=== PATIENT | female | born 1950 | race Caucasian/White ===

== ENCOUNTER 2025-01-23 13:22 | Emergency (ER) | payer MEDICARE, SELFPAY ==
--- OUTSIDE RECORDS SUMMARY | 2025-01-23 13:33 | XMS_ITS | Continuity of Care Document ---
Author Organization [facility] Address [address] [place] [id number] Problems Unknown Problems Results Test Value / Unit Interpretation Reference Ran SARS-CoV-2 (COVID-19), RT-PC R/TMA[[id number]] Collected: 07/01/2021 02:10 PM Specimen Received: 07/03/2021 06:52 PM Source: [facility] SARS-CoV-2 INTERPRETATION [[id number]] Negative See Note SARS-CoV-2 RNA NOT DETECTEDN egative results do not preclude SARS-CoV-2 infection and should notbe used as the sole basis for patient management decisions. Negativeresults must be combined with clinical observations, patient history,and epidemiological information. Optimum specimen types and timingfor peak viral levels during infections caused by SARS-CoV-2 have notbeen determined. Collection of multiple specimens or types ofspecimens may be necessary to detect virus. Improper specimencollection and handling, sequence variability under primers/probes,or organism present below the limit of detection may lead to falsenegative results. Positive and negative predictive values oftesting are highly dependent on prevalence. False negative testresults are more likely when prevalence is high. SOURCE [[id number]] NASOPHARYNGEAL Note: Methodology is Emily BABADUas Real-Time RT-PCR. The expected result or reference range is NEGATIVE (Not Detected). For more information regarding COVID-19 testing to include clinicalinformation, methodology detail, intended use, FDA authorization andrecommended fact sheets for patients or healthcare providers, see [employer] Announcement: SARS-CoV-2 (COVID-19) by NAAT at URL below (note,fact sheets are provided by method given in report:[email or web address]/ Alternatively, see downloadable PDF fact sheet at:[email or web address] Allergies, adverse reactions, alerts No known allergies and adverse reactions Medications No administered medications reported Vital Signs No vital signs reported Social History No smoking Hx information available
--- OUTSIDE RECORDS SUMMARY | 2025-01-23 13:33 | XMS_ITS | Encounter Summary ---
[id number] [address] [place] [address] Care Team Providers Care Wholesale Manager Name Role Phone Sandra Rosario MD Primary Care Provider [phone] Reason for Visit * Reason Onset Date Comments Med Refill 01/11/2025 Encounter Details Date Type Department Care Team (Late st Contact Info) Description 01/11/2025 Refill [facility] [address] [facility] [address] [place] [address] Kayli Hubbard, RN Med Refill Social History Tobacco Use Types Packs/Day Years Used Date Smoking Tobacco: Former Cigarettes 1 1 S tarted: 01/18/2024 Smokeless Tobacco: Never Alcohol Use Standard Drinks/Week Comments Yes 0 (1 standard drink = 0.6 oz pur e alcohol) occasional AUDIT-C Answer Date Recorded Q1: How often do you have a drink containing alc ohol? Monthly or less 12/24/2021 Q2: How many drinks containi ng alcohol do you have on a typical day when you are drinking? 1 or 2 12/24/2021 Q3: How often do you have si x or more drinks on one occasion? Never 12/24/2021 Childcare Answer Date Recorded Childcare Unknown 09/20/2020 Employment Answer Date Recorded Employment Unknown 09/20/2020 Hunger Screening Answer Date Recorded Within the past 12 months we worried whether our food would run out before we got money to buy more. Never True 09/05/2024 Within the past 12 months th e food we bought just didn't last and we didn't have money to get more. Never True 09/05/2024 Purpose - Life Answer Date Recorded Purpose and direction in life Unknown Comments No Sex and Gender Information Value Date Recorded Sex Assigned at Female 07/01/2021 5:54 PM EST Legal Sex Female 11:47 AM EDT Gender Identity Female 07/01/2021 5:54 PM EST Sexual Orientation Straight 07/01/2021 5: 53 PM EST documented as of this encounter Plan of Treatment Upcoming Encounters Date Type Department Care Team (Late st Contact Info) Description 03/09/2025 11:45 AM EDT Office Visit [facility] [address] [place] [phone] Manpreet Heller MD [address] [place] [id number] Myranda Haq MD [address] [place] [address] documented as of this encounter Goals Goal Patient Goal Type Associated Problems Recent Progress Patient-Stated? Author Home General Yes Mary Beth Dawson LSW Note: Evaluation of progress towards goal: Safe dc transition home with family support. documented as of this encounter Visit Diagnoses Diagnosis Coronary artery disease involving [place] coronary artery of [place] heart without angina pectoris documented in this encounter Care Teams Wholesale Manager Relationship Specialty Start Date End Date Sandra Rosario MD PCP - General Family Medicine 04/11/21 documented as of this encounter
--- OUTSIDE RECORDS SUMMARY | 2025-01-23 13:33 | XMS_ITS | Clinical Summary ---
Author Organization [facility] Address [address] [place] [address] Care Team Providers Care Bacon De Rinder Name Role Phone Johanna Terrell PATIENT ACCOUNT SPECIALIST Unavailable [phone] Chanel Moffett MD Primary Care Provider [phone] Zev Moreno LPN Unavailable [phone] Allergies Active Allergy Reactions Criticality Noted Date Comments Hydrocodone-Acetaminophen 01/21/2023 Other Reaction(s): Unknown Medications Lancets misc Inject 1 Lancet under the skin 1 (one) time each day at the same time. Active aspirin 81 MG EC tablet Take 81 mg by mouth in the morning. Active MAGnesium-Oxide 400 (240 Mg) MG tablet Take 400 mg by mouth in the morning. 4 Active nitroglycerin (Nitrostat) 0.4 MG SL tablet 1 under the tongue as needed for angina, may repeat q5mins for up three doses 4 Active potassium chloride CR (Klor-Con M20) 20 MEQ ER tablet Take 20 mEq by mouth in the morning. Active ticagrelor (Brilinta) 90 MG tablet Take 90 mg by mouth in the morning and 90 mg in the evening. 4 Active Accu-Chek Krupa Plus test stripIndications:Ty pe 2 diabetes mellitus with other circulatory complication, without long-term current use of insulin (HCC) USE AND DISCARD 1 TEST STRIP DAILY DIRECTED 100 strip 3 4 Active alendronate (Fosamax) 35 MG tabletIndications:O steopenia, unspecified location TAKE 1 TABLET BY MOUTH EVERY 7 DAYS IN THE MORNING WITH A FULL GLASS OF WATER, ON AN EMPTY STOMACH, AND DO NOT TAKE ANYTHING ELSE BY MOUTH OR LIE DOWN FOR THE NEXT 30 MINUTES 4 tablet 11 5 Active atorvastatin (Lipitor) 80 MG tabletIndications:M ixed hyperlipidemia TAKE ONE TABLET BY MOUTH EVERY MORNING 90 tablet 2 5 Active lisinopril-hydroCHL OROthiazide 20-12.5 MG tabletIndications:B enign essential HTN TAKE ONE TABLET BY MOUTH EVERY MORNING 90 tablet 5 Active omeprazole (PriLOSEC) [address] capsuleIndications: GERD without esophagitis TAKE ONE CAPSULE BY MOUTH EVERY DAY AT THE SAME TIME EACH DAY 90 capsule 5 Active metoprolol succinate XL (Toprol-XL) 50 MG 24 hr tabletIndications:B enign essential HTN TAKE ONE TABLET BY MOUTH EVERY MORNING 90 tablet 5 Active metFORMIN (Glucophage) 1000 MG tabletIndications:T ype 2 diabetes mellitus without complication, without long-term current use of insulin (HCC) TAKE ONE TABLET BY MOUTH EVERY MORNING AND IN THE EVENING WITH MEALS 180 tablet 5 Active SITagliptin (Januvia) 50 MG tabletIndications:T ype 2 diabetes mellitus without complication, without long-term current use of insulin (HCC) Take 1 tablet (50 mg) by mouth Daily 30 tablet 11 5 12/08/19 26 Active Active Problems Problem Noted Date Diagnosed Date Benign essential HTN 01/21/2023 Chronic obstructive pulmonary disease 01/21/2023 Cigarette smoker 01/21/2023 Diabetes mellitus 01/21/2023 GERD without esophagitis 01/21/2023 Hyperlipidemia 01/21/2023 Lacunar stroke 01/21/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, 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 12/24/2021 Type 2 diabetes mellitus wit h circulatory disorder, without long-term current use of insulin 12/24/2021 History of colonic polyps 04/01/2021 Resolved Problems Problem Noted Date Diagnosed Date Resolved Date Diverticulosis 01/21/2023 11/28/2024 Gastroesophageal reflux disease 10/15/2016 11/28/2024 Diverticular disease of colon 12/26/2015 11/28/2024 Essential hypertension 10/16/201511/21 Encounters Date Type Department Care Team Description 12/14/2024 10:30 AM EDT Ancillary Procedure [facility] [place] [facility] [address] [facility] [address] [place] [address] Encounter for screening mammogram for breast cancer 12/14/2024 Travel 12/01/2024 Results Follow-Up [facility] [address] [facility] [place] [phone] Johanna Terrell NP Hypokalemia (Primary Dx); Type 2 diabetes mellitus without complication, without long-term current use of insulin ([facility]) 11/29/2024 Refill [facility] [address] [facility] [place] [phone] Johanna Terrell NP Type 2 diabetes mellitus without complication, without long-term current use of insulin ([facility]) 11/28/2024 11:00 AM EDT Office Visit [facility] [address] [facility] [place] [phone] Johanna Terrell NP Encounter for wellness examination (Primary Dx); Encounter for screening mammogram for breast cancer; Benign essential HTN ; Chronic obstructive pulmonary disease, unspecified COPD type ([facility]); Type 2 diabetes mellitus without complication, without long-term current use of insulin ([facility]); Cigarette smoker; Mixed hyperlipidemia ; Lacunar stroke ([facility]); Cerebrovascular accident (CVA) due to occlusion of left pontine artery ([facility]); Type 2 diabetes mellitus with other circulatory complication, without long-term current use of insulin ([facility]); Screening for deficiency anemia; Sequelae, post-stroke; History of colonic polyps; GERD without esophagitis; Interstitial pulmonary disease, unspecified ([facility]) 11/28/2024 Bamboo flowsheet [facility] [address] [facility] [place] [phone] Johanna Terrell NP 11/28/2024 Travel 11/15/2024 Results Follow-Up [facility] [address] [facility] [place] [address] Johanna Terrell NP Type 2 diabetes mellitus with other circulatory complication, without long-term current use of insulin (HCC) (Primary Dx); Benign essential HTN ; Urine test positive for microalbuminuria 11/09/2024 Telephone [facility] [address] [place] [address] [place] GretchenPAT[facility] Open Orders 11/08/2024 Refill [facility] [address] [place] [address] Johanna Terrell NP Benign essential HTN ; GERD without esophagitis; Type 2 diabetes mellitus without complication, without long-term current use of insulin (HCC) 11/07/2024 Refill [facility] [address] [place] [address] Johanna Terrell NP Mixed hyperlipidemia 10/26/2024 Refill [facility] [address] [place] [phone] Johanna Terrell NP Type 2 diabetes mellitus without complication, without long-term current use of insulin ([facility]) from Last 3 Months Immunizations Immunization Administration Dates Next Due Influenza, High Dose Seasona l, Preservative Free 04/27/2024,05/18/2023,05/03/2018,06/11 Influenza, High-dose Seasona l, Quadrivalent, Preservative Free 05/08/2022 Influenza, injectable, quadr ivalent, preservative free 04/29/2021,05/19/2019,05/18/2017 Influenza, seasonal, injecta ble, preservative free 06/15/2012 Moderna SARS-CoV-2 50mcg/0.5mL Booster Pneumococcal Conjugate PCV 13 04/30/2016 Pneumococcal Polysaccharide PPSV23 05/14/2022, RSV, recombinant, protein talbert bunit RSVpreF, adjuvant reconstitu, 120mcg/0.5mL, PF (Arexvy) 04/27/2024 Tdap 07/16/2022 Zoster, Recombinant 07/16/2022,05/14/2022 Family History Medical History Relation Name Comments Colon cancer Father Esophageal cancer Father Colon cancer Mother Diabetes Mother Relation Name Status Comments Brother 5 Father Mother Sister 3 Social History Tobacco Use Types Packs/Day Years Used Date Smoking Tobacco: Former Cigarettes 1 61.5 S tarted: 1966 Smokeless Tobacco: Never Tobacco Cessation:Counseling Given: Not Answered Comments:5 or less cigarettes/day Alcohol Use Standard Drinks/Week Comments Yes 12 (1 standard drink = 0.6 oz pure alcohol) Alcohol: 1 or 2 drinks, 2 to 4 times a month; Caffeine: 1-2 cups/day coffee [id number] Health Literacy Answer Date Recor ded How often do you need to hav e someone help you when you read instructions, pamphlets, or other written material from your doctor or pharmacy? Never 11/28/2024 Humiliation, Afraid, Rape, and Kick questionnair e Answer Date Recorded Within the last year, have y ou been afraid of your partner or ex-partner? No 11/28/2024 Within the last year, have y ou been humiliated or emotionally abused in other ways by your partner or ex-partner? No Within the last year, have y ou been kicked, hit, slapped, or otherwise physically hurt by your partner or ex-partner? No 11/28/2024 Within the last year, have y ou been raped or forced to have any kind of sexual activity by your partner or ex-partner? No 11/28/2024 Social Connection and Isolation Panel [NHANES] A nswer Date Recorded In a typical week, how many times do you talk on the phone with family, friends, or neighbors? Three times a week 11/29/19 How often do you get togethe r with friends or relatives? Twice a week 11/28/2024 How often do you attend chur ch or religion services? 1 to 4 times per year 11/28/2024 Do you belong to any clubs o r organizations such as rastafari groups, unions, fraternal or athletic groups, or school groups? No 11/28/2024 How often do you attend meet ings of the clubs or organizations you belong to? Never 11/28/2024 Are you , , di vorced, , never , or living with a partner? 11/28/2024 AUDIT-C Answer Date Recorded Q1: How often do you have a drink containing alc ohol? 2-4 times a month 11/28/2024 Q2: How many drinks containi ng alcohol do you have on a typical day when you are drinking? 3 or 4 11/28/2024 Q3: How often do you have si x or more drinks on one occasion? Less than monthly 11/28/2024 Overall Financial Resource Strain (CARDIA) Answe r Date Recorded How hard is it for you to pa y for the very basics like food, housing, medical care, and heating? Not hard at all 11/28/2024 PHQ-2 Answer Date Recorded Patient Health Questionnaire-2 Score 0 11/28/2024 [facility] Occupat ional Health - Occupational Stress Questionnaire Answer Date Recorded Do you feel stress - tense, restless, nervous, or anxious, or unable to sleep at night because your mind is troubled all the time - these days? Not at all 11/28/2024 Exercise Vital Sign Answer Date Recorde d On average, how many days pe r week do you engage in moderate to strenuous exercise (like a brisk walk)? 1 day 11/28/2024 On average, how many minutes do you engage in exercise at this level? 20 min 11/28/2024 Hunger Vital Sign Answer Date Recorded Within the past 12 months, y ou worried that your food would run out before you got the money to buy more. Never true 11/29/19 25 Within the past 12 months, t he food you bought just didn't last and you didn't have money to get more. Never true 11/28/2024 PRAPARE - Transportation Answer Date Re corded In the past 12 months, has l ack of transportation kept you from medical appointments or from getting medications? No 11/02 In the past 12 months, has l ack of transportation kept you from meetings, work, or from getting things needed for daily living? No 11/28/2024 Housing Stability Vital Sign Answer Robson e Recorded In the last 12 months, was t here a time when you were not able to pay the mortgage or rent on time? No 05/17/2023 In the last 12 months, how many places have you lived? 1 05/17/2023 In the last 12 months, was t here a time when you did not have a steady place to sleep or slept in a assisted (including now)? No 05/17/2023 Housing Stability Vital Sign Answer Robson e Recorded In the last 12 months, was t here a time when you were not able to pay the mortgage or rent on time? No 11/28/2024 In the past 12 months, how m any times have you moved where you were living? 0 11/28/2024 At any time in the past 12 m [facility], were you homeless or living in a assisted (including now)? No 11/28/2024 Comments Unknown Sex and Gender Information Value Date Recorded Sex Assigned at Not on file Legal Sex Female 7:26 PM EDT Gender Identity Female 10/15/2022 7:26 PM EDT Sexual Orientation Straight 02/10/2023 7: 44 AM EDT Last Filed Vital Signs Vital Sign Reading Time Taken Comments Blood Pressure 110/68 11/28/2024 10:32 AM EDT Pulse 69 11/28/2024 10:32 AM EDT Temperature 36.2 C (97.2 F) 02/29/2024 9:42 AM EDT Respiratory Rate 16 11/16/2023 10:44 AM EDT Oxygen Saturation 94% 11/28/2024 10:32 AM EDT Inhaled Oxygen Concentration - - Weight 78.5 kg (173 lb) 11/28/2024 10:32 AM EDT Height 170.2 cm (5' 7 ) 11/28/2024 10:32 AM EDT Body Mass Index 27.1 11/28/2024 10:32 AM EDT Plan of Treatment Upcoming Encounters Date Type Department Care Team (Late st Contact Info) Description 03/08/2025 10:30 AM EDT Office Visit [facility] [address] [place] [address] Johanna Terrell NP [address] [place] [address] 05/31/2025 10:00 AM EDT Office Visit [facility] [address] [place] [address] Johanna Terrell NP [address] [place] [address] Health Maintenance Due Date Last Done Comments Diabetes: Hemoglobin A1C 02/27/2025 025, 05/16/2024, 11/16/2023, Additional history exists Diabetes: Urine Protein Screening 11/11/2025 11/11/2024, 08/08/2020, 11/29/2018 Diabetes: Retinopathy Screening 11/18/2025 11/19/2023, 11/11/2021, 05/20/2021, Additional history exists Medicare Annual Wellness (AWV) 11/28/2025 0 11/28/2024, 11/28/2024, 11/16/2023, Additional history exists Colonoscopy Discontinued 04/11/2021, 04/2021, 04/11/2021, Additional history exists Colorectal Cancer Screening Discontinued Pneumococcal Vaccine: 65+ Years Completed 05/14/2022, 04/30/2016, 04/10/2014 Influenza Vaccine Completed 04/27/2024, , 05/08/2022, Additional history exists Mammogram Discontinued 12/14/2024, 08/2023, 09/03/2022, Additional history exists CT Colonography Discontinued FIT-DNA Discontinued FIT Discontinued FOBT Discontinued Sigmoidoscopy Discontinued Procedures Procedure Name Priority Date/Time Associated Diagnosis Comments BI MAMMOGRAM SCREENING TOMOSYNTHESIS BILATERAL Routine 12/14/2024 10:31 AM EDT Encounter for screening mammogram for breast cancer POTASSIUM Routine 12/07/2024 1:28 PM EDT Hypokalemia HEMOGLOBIN A1C Routine 11/28/2024 11:10 AM EDT Type 2 diabetes mellitus with other circulatory complication, without long-term current use of insulin (HCC) Encounter for wellness examination TSH W/REFLEX TO FT4 Routine 11/28/2024 1 1:10 AM EDT Encounter for wellness examination LIPID PANEL Routine 11/28/2024 11:10 AM EDT Mixed hyperlipidemia Encounter for wellness examination CBC (INCLUDES DIFF/PLT) Routine 11/28/2024 11:10 AM EDT Encounter for screening mammogram for breast cancer Screening for deficiency anemia COMPREHENSIVE METABOLIC PANEL Routine 11/28/2024 11:10 AM EDT Encounter for screening mammogram for breast cancer Type 2 diabetes mellitus with other circulatory complication, without long-term current use of insulin (HCC) MICROALBUMIN / CREATININE URINE RATIO Routine 11/11/2024 10:33 AM EDT Type 2 diabetes mellitus without complication, without long-term current use of insulin (HCC) DIABETIC RETINOPATHY SCREENING - OU - BOTH EYES Routine 11/19/2023 9:14 AM EDT COLONOSCOPY Routine 04/11/2021 12:00 PM EDT from Last 3 Months or Most Recently Relevant to Health Maintenance Results * Bilateral screening mammogram with tomosynthesis (12/14/2024 10:31 AM EDT) Anatomical Region Laterality Modality Breast Bilateral Mammography 12/14/2024 4:42 PM EDT Impressions 12/14/2024 4:47 PM EDT Impression: No specific evidence of malignancy seen in either breast. BIRADS 2 - Benign Findings DENSITY: There are scattered areas of fibroglandular density. FOLLOW-UP: Routine Screening Mammogram ELECTRONICALLY SIGNED BY: Hebert Jones M.D. Narrative 12/14/2024 4:47 PM EDT Examination: BI MAMMOGRAM SCREENING TOMOSYNTHESIS BILATERAL Clinical History: screening for breast cancer Technique: Screening digital mammography study of both breasts was performed with 2-D and 3-D tomosynthesis imaging. Study was compared to the prior exam dated 12/02/2023. Findings: There is no evidence of interval dominant spiculated mass, grouped microcalcifications, or skin thickening which would be suggestive of malignancy. Scattered benign calcifications are noted bilaterally. A small benign-appearing asymmetric density is seen in the superolateral aspect of the right breast similar to the prior study. Procedure Note Hebert Jones MD - 12/14/2024 Examination: BI MAMMOGRAM SCREENING TOMOSYNTHESIS BILATERAL Clinical History: screening for breast cancer Technique: Screening digital mammography study of both breasts wasperformed with 2-D and 3-D tomosynthesis imaging. Study was compared tothe prior exam dated 12/02/2023. Findings: There is no evidence of interval dominant spiculated mass,grouped microcalcifications, or skin thickening which would be suggestiveof malignancy. Scattered benign calcifications are noted bilaterally. A smallbenign-appearing asymmetric density is seen in the superolateral aspect ofthe right breast similar to the prior study. IMPRESSION: Impression: No specific evidence of malignancy seen in either breast. BIRADS 2 - Benign Findings DENSITY: There are scattered areas of fibroglandular density. FOLLOW-UP: Routine Screening Mammogram ELECTRONICALLY SIGNED BY: Hebert Jones M.D. Johanna Terrell NP IMG BI PROCEDURES Final Result * Potassium (12/07/2024 1:28 PM EDT) Potassium, Bld 4.2 3.5 - 5.3 mmol/L [facility] Blood Venous blood specimen / Unknown 12/07/2024 1:28 PM EDT 12/07/2024 1:28 PM EDT Narrative Resulting Agency Comment Performing Organization Information Site ID: QPT Name: [facility] Address: [address] [place] [address], [address] [place] [phone] Director: Edgar Andino MD Johanna Terrell NP LAB BLOOD ORDERABLES Fi nal Result [facility] * TSH W/REFLEX TO FT4 (11/28/2024 11:10 AM EDT) TSH W/REFLEX TO FT4 1.21 0.40 - 4.50 mIU/L [facility] 11/28/2024 11:1 0 AM EDT 11/28/2024 11:10 AM EDT Narrative Resulting Agency Comment Performing Organization Information Site ID: QPT Name: [facility] Address: [address], [address] [place] [address] Director: Edgar Andino MD Johanna Terrell PATIENT ACCOUNT SPECIALIST LAB BLOOD ORDERABLES Fi nal Result [facility] * CBC and differential (11/28/2024 11:10 AM EDT) Pathologist [facility] WHITE BLOOD CELL COUNT 6.7 3.8 - 10.8 Thousand/u L [facility] RED BLOOD CELL COUNT 4.48 3.80 - 5.10 Million/uL [facility] HEMOGLOBIN 13.1 11.7 - 15.5 g/dL [facility] HEMATOCRIT 41.0 35.0 - 45.0 % [facility] MCV 91.5 80.0 - 100.0 fL [facility] MCH 29.2 27.0 - 33.0 pg [facility] MCHC 32.0 32.0 - 36.0 g/dL [facility] Comment: For adults, a slight decrease in the calculated MCHC value (in the range of 30 to 32 g/dL) is most likely not clinically significant; however, it should be interpreted with caution in correlation with other red cell parameters and the patient's clinical condition. RDW 13.8 11.0 - 15.0 % [facility] PLATELET COUNT 235 140 - 400 Thousand/u L [facility] MPV 11.3 7.5 - 12.5 fL [facility] ABSOLUTE NEUTROPHILS 4,402 1,500 - 7,800 cells/uL [facility] ABSOLUTE LYMPHOCYTES 1,802 850 - 3,900 cells/uL [facility] ABSOLUTE MONOCYTES 382 200 - 950 cells/uL [facility] ABSOLUTE EOSINOPHILS 87 15 - 500 cells/uL [facility] ABSOLUTE BASOPHILS 27 0 - 200 cells/uL [facility] NEUTROPHILS 65.7 % [facility] LYMPHOCYTES 26.9 % [facility] MONOCYTES 5.7 % [facility] EOSINOPHILS 1.3 % [facility] BASOPHILS 0.4 % [facility] Blood Venous blood specimen / Unknown 11/28/2024 11:10 AM EDT 11/28/2024 11:10 AM EDT Narrative Resulting Agency Comment Performing Organization Information Site ID: QPT Name: [facility] Address: [address], [address] [place] [address] Director: Edgar Andino MD Johanna Terrell PATIENT ACCOUNT SPECIALIST LAB BLOOD ORDERABLES Fi nal Result Performing Organization Address [facility]/ZIP Co de Phone Number [facility] * (ABNORMAL) Hemoglobin A1c (11/28/2024 11:10 AM EDT) Hemoglobin A1C 8.2(H) <5.7 % [facility] Comment: For someone without known diabetes, a hemoglobin A1c value of 6.5% or greater indicates that they may have diabetes and this should be confirmed with a follow-up test. For someone with known diabetes, a value <7% indicates that their diabetes is well controlled and a value greater than or equal to 7% indicates suboptimal control. A1c targets should be individualized based on duration of diabetes, age, comorbid conditions, and other considerations. Currently, no consensus exists regarding use of hemoglobin A1c for diagnosis of diabetes for children. Blood Venous blood specimen / Unknown 11/28/2024 11:10 AM EDT 11/28/2024 11:10 AM EDT Narrative Resulting Agency Comment Performing Organization Information Site ID: QPT Name: [facility] Address: [address] [place] [address], [address] [place] [phone] Director: Edgar Andino MD Johanna Terrell PATIENT ACCOUNT SPECIALIST LAB BLOOD ORDERABLES nal Result Performing Organization Address [facility] de Phone Number [facility] * (ABNORMAL) Lipid panel (11/28/2024 11:10 AM EDT) CHOLESTEROL, TOTAL 141 <200 mg/dL [facility] HDL CHOLESTEROL 28(L) > OR = 50 mg/dL [facility] TRIGLYCERIDES 195(H) <150 mg/dL [facility] LDL-CHOLESTEROL 84 mg/dL (calc) [facility] Comment: Reference range: <100 Desirable range <100 mg/dL for primary prevention; <70 mg/dL for patients with CHD or diabetic patients with > or = 2 CHD risk factors. LDL-C is now calculated using the Susannah calculation, which is a validated novel method providing better accuracy than the Friedewald equation in the estimation of LDL-C. Andrea DRAKE et al. VLADIMIR. 2013;310(19): 8574-5965 (http://education.[employer]/faq/QMD688) CHOL/HDLC RATIO 5.0(H) <5.0 (calc) [facility] NON HDL CHOLESTEROL 113 <130 mg/dL (calc) [facility] Comment: For patients with diabetes plus 1 major ASCVD risk factor, treating to a non-HDL-C goal of <100 mg/dL (LDL-C of <70 mg/dL) is considered a therapeutic option. Blood Venous blood specimen / Unknown 11/28/2024 11:10 AM EDT 11/28/2024 11:10 AM EDT Narrative Resulting Agency Comment Performing Organization Information Site ID: QPT Name: [facility] Address: [address] [place] [address], [address] [place] [phone] Director: Edgar Andino MD Johanna Terrell PATIENT ACCOUNT SPECIALIST LAB BLOOD ORDERABLES Fi nal Result [facility] * (ABNORMAL) Comprehensive metabolic panel (11/28/2024 11:10 AM EDT) Glucose 115(H) 65 - 99 mg/dL [facility] Comment: Fasting reference interval For someone without known diabetes, a glucose value between 100 and 125 mg/dL is consistent with prediabetes and should be confirmed with a follow-up test. BUN 9 7 - 25 mg/dL [facility] Creatinine 0.55(L) 0.60 - 1.00 mg/dL [facility] EGFR 95 > OR = 60 mL/min/1.7 3m2 [facility] BUN/CREATININE RATIO 16 6 - 22 (calc) [facility] Sodium 141 135 - 146 mmol/L [facility] Potassium, Bld 3.3(L) 3.5 - 5.3 mmol/L [facility] Chloride 100 98 - 110 mmol/L [facility] Carbon Dioxide 30 20 - 32 mmol/L [facility] Calcium 9.8 8.6 - 10.4 mg/dL [facility] PROTEIN, TOTAL 7.8 6.1 - 8.1 g/dL [facility] ALBUMIN 4.4 3.6 - 5.1 g/dL [facility] GLOBULIN 3.4 1.9 - 3.7 g/dL (calc) [facility] ALBUMIN/GLOBULIN RATIO 1.3 1.0 - 2.5 (calc) [facility] BILIRUBIN, TOTAL 0.5 0.2 - 1.2 mg/dL [facility] ALKALINE PHOSPHATASE 57 37 - 153 U/L [facility] AST 51(H) 10 - 35 U/L [facility] ALT 44(H) 6 - 29 U/L [facility] Blood Venous blood specimen / Unknown 11/28/2024 11:10 AM EDT 11/28/2024 11:10 AM EDT Narrative Resulting Agency Comment Performing Organization Information Site ID: QPT Name: [facility] Address: [address] [place] [phone] Director: Edgar Andino MD us Johanna Terrell PATIENT ACCOUNT SPECIALIST LAB BLOOD ORDERABLES Fi nal Result Performing Organization Address City/[facility]/ZIP Co de Phone Number [facility] * (ABNORMAL) Microalbumin / creatinine, urine ratio (11/11/2024 10:33 AM EDT) CREATININE, RANDOM URINE 67 20 - 275 mg/dL [facility] ALBUMIN, URINE 3.9 See Note: mg/dL [facility] Comment: Reference Range: Reference Range Not established ALBUMIN/CREATININE RATIO, RANDOM URINE 58(H) <30 mg/g creat [facility] Comment: The ADA defines abnormalities in albumin excretion as follows: Albuminuria Category Result (mg/g creatinine) Normal to Mildly increased <30 Moderately increased 30-299 Severely increased > OR = 300 The ADA recommends that at least two of three specimens collected within a 3-6 month period be abnormal before considering a patient to be within a diagnostic category. Urine Urine specimen obtained by clean catch procedure / Unknown 11/11/2024 10:33 AM EDT 11/11/2024 10:34 AM EDT Narrative [facility] - 11/12/2024 9:57 AM EDT SPLIT 11/16/2023 FROM [id number] Resulting Agency Comment Performing Organization Information Site ID: QPT Name: [facility] Address: [facility], [address] [place] [id number] Director: Edgar Andino MD us Johanna Terrell PATIENT ACCOUNT SPECIALIST LAB URINE ORDERABLES Fi nal Result [facility] * Diabetic Retinopathy Screening - OU - Both Eyes (11/19/2023 9:14 AM EDT) Anatomical Region Laterality Modality Head Other us Arleen Campuzano NP OPHTH PHOTOGRAPHY Final Result * Colonoscopy (04/11/2021 12:00 PM EDT) Anatomical Region Laterality Modality Endoscopy 04/11/2021 12:0 0 PM EDT Narrative 04/11/2021 12:00 PM EDT PERFORMED AT [facility] LOCATION:[id number] Procedure Note CONVERSION, GENERIC - 12/17/2022 PERFORMED AT [facility] LOCATION:[id number] us Chanel Moffett MD ENDOSCOPY PROCEDURE ORDERABLE S Final Result from Last 3 Months or Most Recently Relevant to Health Maintenance Insurance [employer] MEDICARE [employer]VANTAGE Care Teams Bacon De Rinder Relationship Specialty Start Date End Date Johanna Terrell NP [address] [place], [place] [id number] PCP - Agnieszka GARNER 08/03/21 Chanel Moffett MD [address], [place] [id number] PCP - General Family Medicine 01/27/23 Zev Moreno LPN [address] [place] [id number] Licensed Practical Nurse Family Medicine 10/12/24
--- OUTSIDE RECORDS SUMMARY | 2025-01-23 13:33 | XMS_ITS | Encounter Summary ---
Author Organization [facility] Address [address] [place] [address] Care Team Providers Care Superintendent Sanitation Name Role Phone Johanna Terrell POSTDOCTORAL SCHOLAR Unavailable [phone] Chanel Moffett MD Primary Care Provider [phone] Zev Moreno LPN Unavailable [phone] Reason for Visit * Reason Onset Date Comments Med Refill 01/21/2024 Encounter Details Date Type Department Care Team (Late st Contact Info) Description 01/21/2024 Refill [facility] [address] [place] [address] Chanel Moffett MD [address] [place] [address] Social History Tobacco Use Types Packs/Day Years Used Date Smoking Tobacco: Every Day Cigarettes 1 61.5 Started: 1965 Smokeless Tobacco: Never Comments:5 or less cigarette s/day Alcohol Use Standard Drinks/Week Comments Yes 0 (1 standard drink = 0.6 oz pure alcohol) Alcohol: 1 or 2 drinks, 2 to 4 times a month; Caffeine: 1-2 cups/day coffee Humiliation, Afraid, Rape, and Kick questionnair e Answer Date Recorded Within the last year, have y ou been afraid of your partner or ex-partner? No 05/17/2023 Within the last year, have y ou been humiliated or emotionally abused in other ways by your partner or ex-partner? No Within the last year, have y ou been kicked, hit, slapped, or otherwise physically hurt by your partner or ex-partner? No 05/17/2023 Within the last year, have y ou been raped or forced to have any kind of sexual activity by your partner or ex-partner? No 05/17/2023 Social Connection and Isolat ion Panel [NHANES] Answer Date Recorded In a typical week, how many times do you talk on the phone with family, friends, or neighbors? More than three times a week 05/17/2023 How often do you get togethe r with friends or relatives? Twice a week 05/17/2023 How often do you attend chur or buddhist services? More than 4 times per year 05/17/2023 Do you belong to any clubs o r organizations such as baptism groups, unions, fraternal or athletic groups, or school groups? No 05/17/2023 How often do you attend meet ings of the clubs or organizations you belong to? Never 05/17/2023 Are you , , di vorced, , never , or living with a partner? 05/17/2023 AUDIT-C Answer Date Recorded Q1: How often do you have a drink containing alc ohol? 2-3 times a week 05/17/2023 Q2: How many drinks containi ng alcohol do you have on a typical day when you are drinking? 3 or 4 05/17/2023 Q3: How often do you have si x or more drinks on one occasion? Less than monthly 05/17/2023 Overall Financial Resource Strain (CARDIA) Answe r Date Recorded How hard is it for you to pa y for the very basics like food, housing, medical care, and heating? Not hard at all 05/17/2023 [facility] [place] of Occupat ional Health - Occupational Stress Questionnaire Answer Date Recorded Do you feel stress - tense, restless, nervous, or anxious, or unable to sleep at night because your mind is troubled all the time - these days? Not at all 05/17/2023 Exercise Vital Sign Answer Date Recorde d On average, how many days pe r week do you engage in moderate to strenuous exercise (like a brisk walk)? 0 days 05/17/2023 On average, how many minutes do you engage in exercise at this level? 0 min 05/17/2023 Hunger Vital Sign Answer Date Recorded Within the past 12 months, y ou worried that your food would run out before you got the money to buy more. Never true 05/17/20 23 Within the past 12 months, t he food you bought just didn't last and you didn't have money to get more. Never true 05/17/2023 PRAPARE - Transportation Answer Date Re corded In the past 12 months, has l ack of transportation kept you from medical appointments or from getting medications? No 05/03 In the past 12 months, has l ack of transportation kept you from meetings, work, or from getting things needed for daily living? No 05/17/2023 Housing Stability Vital Sign Answer [...] place to sleep or slept in a [place] health care facility (including now)? No 05/17/2023 Comments Unknown Sex and Gender Information Value Date Recorded Sex Assigned at Not on file Legal Sex Female 7:26 PM EDT Gender Identity Female 10/15/2022 7:26 PM EDT Sexual Orientation Straight 02/10/2023 7: 44 AM EDT documented as of this encounter Plan of Treatment Upcoming Encounters Date Type Department Care Team (Late st Contact Info) Description 03/08/2025 10:30 AM EDT Office Visit [facility] [address] [place] [phone] Johanna Terrell NP [address] [place] [address] 05/31/2025 10:00 AM EDT Office Visit [facility] [address] [place] [phone] Johanna Terrell NP [address] [place], [place] [phone] documented as of this encounter Visit Diagnoses Not on filedocumented in this encounter Additional Health Concerns Assessment Noted Time PHQ-9 Depression Total Score: 1 11/16/19 24 10:00 AM EDT documented as of this encounter Care Teams Superintendent Sanitation Relationship Specialty Start Date End Date Johanna Terrell NP [address] [place], [place] [id number] PCP - Agnieszka GARNER 08/03/21 Chanel Moffett MD [address] [place] [address] PCP - General Family Medicine 01/27/23 Zev Moreno LPN [address] [place] [address] Licensed Practical Nurse Family Medicine 10/12/24 documented as of this encounter
--- OUTSIDE RECORDS SUMMARY | 2025-01-23 13:33 | XMS_ITS | Encounter Summary ---
Author Organization [facility] Address [address] [place] [facility] [place] [address] Care Team Providers Care Portable Track Line Marker Name Role Phone Johanna Terrell PROFESSOR OF POLITICAL SCIENCE Unavailable [phone] Chanel Moffett MD Primary Care Provider [phone] Zev Moreno LPN Unavailable [phone] Reason for Visit * Reason Onset Date Comments Med Refill 04/12/2024 Encounter Details Date Type Department Care Team (Late st Contact Info) Description 04/12/2024 Refill [facility] [address] [place] [address] Chanel Moffett MD [address] [place] [address] Social History Tobacco Use Types Packs/Day Years Used Date Smoking Tobacco: Former Cigarettes 1 61.5 S tarted: 1966 Smokeless Tobacco: Never Comments:5 or less cigarette [...] How often do you attend chur or muslim services? More than 4 times per year 05/17/2023 Do you belong to any clubs o r organizations such as orthodox groups, unions, fraternal or athletic groups, or [...] and heating? Not hard at all 05/17/2023 [facility] [place] of Occupat ional Health - Occupational Stress [...] place to sleep or slept in a residential (including now)? No 05/17/2023 Comments Unknown Sex and Gender Information Value Date Recorded Sex Assigned at Not on file Legal Sex Female 7:26 PM EDT Gender Identity Female 10/15/2022 7:26 PM EDT Sexual Orientation Straight 02/10/2023 7: 44 AM EDT documented as of this encounter Miscellaneous Notes * Telephone Encounter - Jane Delacruz MA - 04/18/2024 11:52 AM EDT Refills already in by reiki practitioner * Telephone Encounter - Johanna Terrell NP - 04/18/2024 7:39 AM EDT Ok that's fine thanks * Telephone Encounter - Johanna Terrell NP - 04/16/2024 11:51 AM EDT So was he able to get his prescription? * Telephone Encounter - Johanna Terrell NP - 04/14/2024 6:40 PM EDT Ok so have patient contact his pharmacy for refill * Telephone Encounter - Johanna Terrell NP - 04/13/2024 10:53 AM EDT Please contact his cardiology group and request a refill of this thanks documented in this encounter Plan of Treatment Upcoming Encounters Date Type Department Care Team (Late st Contact Info) Description 03/08/2025 10:30 AM EDT Office Visit [facility] [address] [place] [phone] Johanna Terrell NP [address] [place] [address] 05/31/2025 10:00 AM EDT Office Visit [facility] [address] [place] [phone] Johanna Terrell NP [address] [place] [address] documented as of this encounter Visit Diagnoses Not on filedocumented in this encounter Additional Health Concerns Assessment Noted Time PHQ-9 Depression Total Score: 1 11/16/19 24 10:00 AM EDT documented as of this encounter Care Teams Portable Track Line Marker Relationship Specialty Start Date End Date Johanna Terrell NP [address] [place] [address] PCP - Agnieszka GARNER 08/03/21 Chanel Moffett MD [address] [place] [address] PCP - General Family Medicine 01/27/23 Zev Moreno LPN [address] [place] [id number] Licensed Practical Nurse Family Medicine 10/12/24 documented as of this encounter
--- OUTSIDE RECORDS SUMMARY | 2025-01-23 13:33 | XMS_ITS | Encounter Summary ---
Author Organization [facility] Address [id number] [address] [place] [address] Care Team Providers Care Underwriter Name Role Phone Sandra Rosario MD Primary Care Provider [phone] Encounter Details Date Type Department Care Team (Late st Contact Info) Description 11/23/2023 Orders Only [facility] [address] [place] [address] External, Scanning Provider Social History Tobacco Use Types Packs/Day Years Used Date Smoking Tobacco: Every Day Cigarettes Smokeless Tobacco: Never Alcohol Use Standard Drinks/Week Comments Yes 0 (1 standard drink = 0.6 oz pur e alcohol) occassional AUDIT-C Answer Date Recorded Q1: How often [...] Employment Answer Date Recorded Employment Unknown 09/20/2020 Purpose - Life Answer Date Recorded Purpose [...] Cardiology [address] [place] [phone] Manpreet Heller MD [address] [place] [phone] Myranda Haq MD [address] [place] [address] documented as of this encounter Goals Goal Patient Goal Type Associated Problems Recent Progress Patient-Stated? Author Home General Yes Mary Beth Dawson LSW Note: Evaluation of progress towards goal: Safe dc transition home with family support. documented as of this encounter Procedures Procedure Name Priority Date/Time Associated Diagnosis Comments XR CHEST 2 VWS Routine 11/23/2023 3:40 PM EDT MULTIPLE LABS Routine 11/23/2023 3:39 PM EDT MULTIPLE LABS Routine 11/23/2023 3:36 PM EDT MULTIPLE LABS Routine 11/23/2023 3:33 PM EDT ECG 12-LEAD Routine 11/23/2023 3:32 PM EDT LIPID PROFILE Routine 11/23/2023 documented in this encounter Results * X-ray chest 2 views (11/23/2023 3:40 PM EDT) Anatomical Region Laterality Modality Body, Chest N/A Computed Radiogr aphy us Scanning Provider External IMG DIAGNOSTIC IMAGIN G ORDERABLES Final Result * Multiple labs (11/23/2023 3:39 PM EDT) us Scanning Provider External AR IMAGING Final Result * Multiple labs (11/23/2023 3:36 PM EDT) us Scanning Provider External AR IMAGING Final Result Performing Organization Address [facility] de Phone Number MANUALLY TRANSCRIBED RESULTS * Multiple labs (11/23/2023 3:33 PM EDT) us Scanning Provider External AR IMAGING Final Result Performing Organization Address [facility] de Phone Number MANUALLY TRANSCRIBED RESULTS * ECG 12 lead (11/23/2023 3:32 PM EDT) us Scanning Provider External ECG ORDERABLES Final Result Performing Organization Address [facility] de Phone Number MANUALLY TRANSCRIBED RESULTS * Lipid profile (11/23/2023) External Cholesterol 137 MANUALLY TRANSCRIBED RESULTS External Cholesterol:Hdl 5.1 MANUALLY TRANSCRIBED RESULTS External Hdl Cholesterol 27 MANUALLY TRANSCRIBED RESULTS External Ldl (Calc) 78 MANUALLY TRANSCRIBED RESULTS External Triglycerides 234 MANUALLY TRANSCRIBED RESULTS Non HDL Chol. (LDL+VLDL) 110 MANUALLY TRANSCRIBED RESULTS us Scanning Provider External LAB BLOOD ORDERABLES Edited Result - Final Performing Organization Address [facility] de Phone Number MANUALLY TRANSCRIBED RESULTS documented in this encounter Visit Diagnoses Not on filedocumented in this encounter Care Teams Underwriter Relationship Specialty Start Date End Date Sandra Rosario MD PCP - General Family Medicine 04/11/21 documented as of this encounter
--- OUTSIDE RECORDS SUMMARY | 2025-01-23 13:33 | XMS_ITS | Encounter Summary ---
Author Organization [facility] Address [address] [place] [address] Care Team Providers Care Automatic Machines Supervisor Name Role Phone Johanna Terrell ASSISTANT SURVEYOR Unavailable [phone] Chanel Moffett MD Primary Care Provider [phone] Zev Moreno LPN Unavailable Encounter Details Date Type Department Care Team (Late st Contact Info) Description 01/02/2024 Orders Only [facility] [address] [place] [address] Arleen Campuzano NP [address] [place], [place] [phone] Social History Tobacco Use Types Packs/Day Years Used Date Smoking Tobacco: Every Day Cigarettes 1 61.5 Started: 1966 Smokeless Tobacco: Never Comments:5 or less [...] How often do you attend chur or yazidi services? More than 4 times per year 05/17/2023 Do you belong to any clubs o r organizations such as moravian groups, unions, fraternal or athletic groups, or [...] and heating? Not hard at all 05/17/2023 [facility] of Occupat ional Health - Occupational Stress [...] place to sleep or slept in a fpc (including now)? No 05/17/2023 Comments Unknown Sex [...] EDT Office Visit [facility] [address] [place] [address] Johanna Terrell NP [address] [place] [address] 05/31/2025 10:00 AM EDT Office Visit [facility] [address] [place] [address] Johanna Terrell NP [address] [place] [address] documented as of this encounter Procedures Procedure Name Priority Date/Time Associated Diagnosis Comments DIABETIC RETINOPATHY SCREENING - OU - BOTH EYES Routine 11/19/2023 9:14 AM EDT documented in this encounter Results * Diabetic Retinopathy Screening - OU - Both Eyes (11/19/2023 9:14 AM EDT) Anatomical Region Laterality Modality Head Other Arleen Campuzano NP OPHTH PHOTOGRAPHY Final Result documented in this encounter Visit Diagnoses Not on filedocumented in this encounter Additional Health Concerns Assessment Noted Time PHQ-9 Depression Total Score: 1 11/16/19 24 10:00 AM EDT documented as of this encounter Care Teams Automatic Machines Supervisor Relationship Specialty Start Date End Date Johanna Terrell NP [address] [place], [place] [phone] PCP - Agnieszka GARNER 08/03/21 Chanel Moffett MD [address] [place], [place] [address] PCP - General Family Medicine 01/27/23 Zev Moreno LPN [address] [place] [phone] Licensed Practical Nurse Family Medicine 10/12/24 documented as of this encounter
--- OUTSIDE RECORDS SUMMARY | 2025-01-23 13:33 | XMS_ITS | Encounter Summary ---
Author Organization [facility] Address [address] [place] [address] Care Team Providers Care Member Service Specialist Name Role Phone Johanna Terrell PACKAGING MANAGER Unavailable [phone] Chanel Moffett MD Primary Care Provider [phone] Zev Moreno LPN Unavailable [phone] Encounter Details Date Type Department Care Team (Late st Contact Info) Description 05/18/2023 Abstract [facility] [address] [place] [address] Johanna Terrell NP [address] [place], [place] [phone] Social History Tobacco Use Types Packs/Day Years Used Date Smoking Tobacco: Every Day Cigarettes Smokeless Tobacco: Never Comments:5 or less cigarette [...] How often do you attend chur or oriental orthodox services? More than 4 times per year 05/17/2023 Do you belong to any clubs o r organizations such as orthodoxy groups, unions, fraternal or athletic groups, or [...] and heating? Not hard at all 05/17/2023 [facility] of Occupat ional Health - [...] money to buy more. Never true 05/17/20 Within the past 12 months, t he [...] place to sleep or slept in a skilled nursing (including now)? No 05/17/2023 Comments Unknown Sex and Gender Information Value Date Recorded Sex Assigned at Not on file Legal Sex Female 7:26 PM EDT Gender Identity Female 10/15/2022 7:26 PM EDT Sexual Orientation Straight 02/10/2023 7: 44 AM EDT COVID-19 Exposure Response Date Recorded In the last 10 days, have yo u been in contact with someone who was confirmed or suspected to have Coronavirus/COVID-19? No / Unsure 05/17/2023 11:06 AM EDT documented as of this encounter Plan of Treatment Upcoming Encounters Date Type Department Care Team (Late st Contact Info) Description 03/08/2025 10:30 AM EDT Office Visit [facility] [address] [place] [address] Johanna Terrell NP [address] [place] [address] 05/31/2025 10:00 AM EDT Office Visit [facility] [address] [place] [address] Johanna Terrell NP [address] [place], [place] [id number] documented as of this encounter Visit Diagnoses Not on filedocumented in this encounter Care Teams Member Service Specialist Relationship Specialty Start Date End Date Johanna Terrell NP [address] [place], [place] [phone] PCP - Agnieszka GARNER 08/03/21 Chanel Moffett MD [address] [place], [place] [phone] PCP - General Family Medicine 01/27/23 Zev Moreno LPN [address] [place] [address] Licensed Practical Nurse Family Medicine 10/12/24 documented as of this encounter
--- OUTSIDE RECORDS SUMMARY | 2025-01-23 13:33 | XMS_ITS ---
Author Organization [facility] Address [address] [place] [address] Care Team Providers Care Stock Pitcher Name Role Phone Johanna Terrell WEBSPHERE MESSAGE BROKER DEVELOPER Unavailable [phone] Chanel Moffett MD Primary Care Provider [phone] Zev Moreno LPN Unavailable [phone] Chronic Care Management (CCM) Status:Enrolled (Active) Start date:10/12/2024 Enrollment date:10/12/2024 Overview Please assess for Care Management needs. 10/12/24, 10:52 AM - Zev Moreno LPN- Patient gives verbal consent to be enrolled in CCM Programand understands there could be a bill for this service should insurer/policy change in the future. Case Team Name Relationship Phone Zev Moreno LPN(Responsible Staff) Licensed Pr actical Nurse [phone] Continued Care and Services Coordination
--- OUTSIDE RECORDS SUMMARY | 2025-01-23 13:33 | XMS_ITS | Clinical Summary ---
Author Organization [employer] tem Address [id number] [address] [place] [address] Care Team Providers Care Plant Pathologist Name Role Phone Sandra Rosario MD Primary Care Provider [phone] Allergies Active Allergy Reactions Criticality Noted Date Comments Hydrocodone-Acetaminophen 04/11/2021 bp issues Other Reaction(s): Unknown Medications lisinopril-hydr oCHLOROthiazide (PRINZIDE,ZESTO RETIC) 20-12.5 mg per tablet Take 1 tablet by mouth in the morning. 1 Active omeprazole (PriLOSEC) 20 mg capsule Take 1 capsule (20 mg total) by mouth nightly. 1 Active metoprolol succinate XL (TOPROL-XL) 50 mg 24 hr tablet Take 1 tablet (50 mg total) by mouth in the morning. 1 Active atorvastatin (LIPITOR) 80 mg tablet Take 1 tablet (80 mg total) by mouth nightly. 30 tablet 2 Active alendronate (FOSAMAX) 70 mg tablet Take 1 tablet (70 mg total) by mouth every 7 days. In a.m. with water on empty stomach, nothing else by mouth and remain upright for 30min Active SITagliptin phosphate (JANUVIA) 25 mg tablet Take 1 tablet (25 mg total) by mouth in the morning. Active aspirin 81 mg Take 1 tablet (81 mg total) by mouth in the morning. Active nitroglycerin (NITROSTAT) 0.4 MG SL tablet 1 under the tongue as needed for angina, may repeat q5mins for up three doses 100 tablet 11 4 Active metFORMIN (GLUCOPHAGE) 1000 mg tablet Take 1 tablet (1,000 mg total) by mouth in the morning and 1 tablet (1,000 mg total) in the evening. Take with meals. 4 Active ticagrelor (BRILINTA) 90 mg tabletIndicatio ns:Coronary artery disease involving [place] coronary artery of [place] heart without angina pectoris Take 1 tablet (90 mg total) by mouth every 12 (twelve) hours. 180 tablet 5 Active ticagrelor (BRILINTA) 90 mg tabletIndicatio ns:Coronary artery disease involving [place] coronary artery of [place] heart without angina pectoris Take 1 tablet (90 mg total) by mouth every 12 (twelve) hours. 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 12/24/2021 Type 2 diabetes mellitus wit h circulatory disorder, without long-term current use of insulin 12/24/2021 Essential hypertension 12/24/2021 Mixed hyperlipidemia 12/24/2021 Resolved Problems Problem Noted Date Diagnosed Date Resolved Date Abnormal cardiovascular stress test 01/19/2024 09/05/2024 Abnormal stress test 01/19/2024 025 Angina pectoris 12/24/2023 09/05/2024 Encounters Date Type Department Care Team Description 01/11/2025 Refill [facility] [address] [place] [id number] Kayli Hubbard, RN Med Refill from Last 3 Months Immunizations Immunization Administration Dates Next Due COVID-19, mRNA, LNP-S, PF, 30mcg/0.3mL Dose 10/01,09/24/2020 Family History Medical History Relation Name Comments Cancer Father esopaphageal Heart disease Father Colon cancer Mother Diabetes Mother Relation Name Status Comments Father Mother Social History Tobacco Use Types Packs/Day Years Used Date Smoking Tobacco: Former Cigarettes 1 1 S tarted: 01/18/2024 Smokeless Tobacco: Never Tobacco Cessation:Counseling Given: No Alcohol Use Standard Drinks/Week Comments Yes 0 [...] Orientation Straight 07/01/2021 5: 53 PM EST Last Filed Vital Signs Vital Sign Reading Time Taken Comments Blood Pressure 152/84 09/05/2024 11:22 AM EST Pulse 74 09/05/2024 11:22 AM EST Temperature 36.5 C (97.7 F) 02/01/2024 11:53 PM EDT Respiratory Rate 15 02/02/2024 7:10 AM EDT Oxygen Saturation 99% 09/05/2024 11:22 AM EST Inhaled Oxygen Concentration - - Weight 81.4 kg (179 lb 6.4 oz) 09/05/2024 11:22 AM EST Height 170.2 cm (5' 7 ) 09/05/2024 11:22 AM EST Body Mass Index 28.1 09/05/2024 11:22 AM EST Plan of Treatment Upcoming Encounters Date Type Department Care Team (Late st Contact Info) Description 03/09/2025 11:45 AM EDT Office Visit [facility] [address] [place] [phone] Manpreet Heller MD [address] [place] [phone] Myranda Haq MD [address] [place] [address] Health Maintenance Due Date Last Done Comments Depression Screening 1962 Fall Risk Screening 02/25/2013 COVID-19 Vaccine (2023-2 5 season) 2024 04/27/2024, 06/04/2023, 05/08/2022, Additional history exists Influenza Vaccine 04/03/2025 04/27/2024, , 05/08/2022, Additional history exists Tobacco Screening 09/05/2025 09/05/2024 DTaP,Tdap and Td Vaccines (2 - Td or Tdap) 07/16/2032 07/16/2022 Zoster (Shingles) Vaccine Completed 2022, 07/16/2022, 05/14/2022 Goals Goal Patient Goal Type Associated Problems Recent Progress Patient-Stated? Author Home General Yes Mary Beth Dawson LSW Note: Evaluation of progress towards goal: Safe dc transition home with family support. Medical Devices Implanted Type Area Government Service Executive Device Identifier Shelf Expiration Date Model / Serial / Lot Lens Iol Ultrasert 18.0d - [id number] - [id number] Implanted:Qty : 1 on 07/04/2021 by Yarelis Liang MD at [facility] Lens Right: Eye [employer] 01/03/2024 [id number] 18.0 / [id number] / System Cor Stnt 3.0mm X 33mm 145cm Xience [employer] Mtlnk Antonino - [id number] Implanted:Qty : 1 on 02/01/2024 by José Miguel Stark MD at [facility] Stent N/A: Arterial MAN VASCULAR [id number] 06/14/2026 [id number] [address] [place] [address] [employer] MED[employer]ARE Advance Directives * Full Code (Latest Code Status on File) Date Activated Date Inactivated Comments 12/24/2021 8:13 AM 12/25/2021 5:04 PM Care Teams Plant Pathologist Relationship Specialty Start Date End Date Sandra Rosario MD PCP - General Family Medicine 04/11/21
[2025-01-23 13:39] VITALS: BP 148/85; PULSE 102; TEMP 36.6; O2SAT 98; BMI 26.6
--- NOTE | 2025-01-23 17:41 | ECG_ITS ---
[facility] Test Date: 2025-01-23 Pat Name: GONZALEZ HARO Department: Room: - Gender: Female Health Advocate: : 1950 Requested By: [id number] Order Number: [id number] Reading MD: TYRONE UGALDE M.D. Measurements Intervals [place] Rate: 89 P: 21 ME: 186 QRS: 10 QRSD: 80 T: 42 QT: 348 QTc: 394 Interpretive Statements 1100 Sinus rhythm 3113 Cannot rule out anterior myocardial infarction, probably old 9150 abnormal ECG No previous ECG available for comparison Electronically Signed On 01-23-2025 18:27:56 EDT by TYRONE UGALDE M.D.
[2025-01-23 17:58] LABS: Basophils Percent Auto 0.5 % (0.2-2.0); Eosinophils Absolute Auto 0.1 10^3/uL (0.0-0.7); Eosinophils Percent Auto 1.2 % (0.9-7.0); Hematocrit 40.8 % (36.0-48.0); Hemoglobin 13.6 g/dL (12.0-16.0); Immature Granulocytes Abs Auto 0.02 10^3/uL (0.00-0.03); Immature Granulocytes Pct Auto 0.2 % (0.0-0.5); Lymphocytes Absolute Auto 2.3 10^3/uL (1.2-3.8); Lymphocytes Percent Auto 26.3 % (20.5-60.0); Mean Corpuscular HGB Conc 33.3 g/dL (29.9-35.2); Mean Corpuscular Hemoglobin 29.8 pg (26.7-34.0); Mean Corpuscular Volume 89.3 fL (81.0-99.0); Mean Platelet Volume 11.7 fL (9.5-13.5); Monocytes Absolute Auto 0.5 10^3/uL (0.3-0.8); Monocytes Percent Auto 6.1 % (1.7-12.0); Neutrophils Absolute Auto 5.8 10^3/uL (1.4-6.5); Neutrophils Percent Auto 65.7 % (43.0-75.0); Platelet Count 244 10^3/uL (150-450); Red Blood Count 4.57 10^6/uL (4.20-5.40); White Blood Count 8.9 10^3/uL (4.0-11.0)
[2025-01-23 18:15] LABS: Alanine Aminotransferase 74 U/L (14-59); Albumin Globulin Ratio 0.8; Albumin Level 3.6 g/dL (3.4-5.0); Alkaline Phosphatase 72 U/L (46-116); Anion Gap 13.9; Aspartate Amino Transferase 60 U/L (15-37); BUN Creatinine Ratio 22.7; Bilirubin Total 0.4 mg/dL (0.2-1.0); Calcium 10.2 mg/dL (8.5-10.1); Carbon Dioxide 29.1 mmol/L (21.0-32.0); Chloride 104 mmol/L (98-107); Estimated GFR (African America >60 (>=60 mL/min/1.73m^2); Estimated GFR (Non-African Ame >60 (>=60 mL/min/1.73m^2); Globulin 4.6 g/dL; Glucose 132 mg/dL (74-106); Sodium 143 mmol/L (136-145); Total Protein 8.2 g/dL (6.4-8.2)
[2025-01-23 19:03] LABS: Magnesium 0.9 mg/dL (1.8-2.4)
[2025-01-23] MEDS: MAGNESIUM OXIDE 400 MG TABLET 800 MG PO (19:11)
[2025-01-23] MEDS: MAGNESIUM SULFATE IN WATER 2 GM/50 ML PREMIX IV (19:11)
--- NOTE | 2025-01-23 19:53 | ED_ITS ---
HPI HPI - General Adult General Chief complaint: Recheck/Abnormal Lab/Rx Stated complaint: ABNORMAL LABS Time Seen by Provider: 01/23/25 18:12 Source: patient Mode of arrival: walk-in Limitations: no limitations History of Present Illness HPI narrative: Patient is a 74-year-old female who is presenting to the ER with chief complaint of low magnesium levels. Patient was called by her Nephrology: Office Dr. Duke stating that her magnesium levels were 0.9. Patient has no symptoms. She is not lightheaded or dizzy. No headache. No chest pain or shortness of breath. No muscle cramping or fatigue. No recent nausea, vomiting, diarrhea, no other acute complaints. Patient has had low magnesium levels before. Patient has 1 stents in her heart. All systems are negative except as noted/marked. All systems reviewed and otherwise negative. Nurses note and vital signs reviewed and patient is not hypoxic. General: The patient appears well and in no apparent distress. Patient is resting comfortably on cart. Patient is not toxic, lethargic, or listless Skin: Warm, dry, no pallor noted. There is no rash noted. No petechiae, purpura. Head: Normocephalic, atraumatic Eye: Normal conjunctiva, no drainage, EOMI. PERRL Ears, Nose, Mouth, and Throat: oral mucosa is moist. Nares patent. Mouth without vesicles. Cardiovascular: Regular Rate and Rhythm, no murmur, gallop, rub Respiratory: Patient is in no distress, no accessory muscle use, lungs are clear to auscultation, no wheezing, rales or rhonchi Back: non-tender, no CVA tenderness bilaterally to percussion. No CT LS midline pain GI: no tenderness to palpation, no masses appreciated. No rebound, guarding, or rigidity noted. No distention Musculoskeletal: Patient has full range of motion of all of the extremities, no motor, sensory, or focal neurological deficits Neurological: A&O x4, normal speech, patient appears to have normal reflexes, no hypo or hyperreflexia noted to bilateral patella and Achilles tendons. Psychiatric: Cooperative Related Data Home Medications ?Medication ?Instructions ?Recorded ?Confirmed alendronate 35 mg tablet mg PO 01/23/25 atorvastatin 80 mg tablet mg 01/23/25 blood sugar diagnostic (Accu-Chek 01/23/25 01/23/25 Krupa Plus test strips) lisinopril 20 tab 01/23/25 mg-hydrochlorothiazide 12.5 mg tablet metformin 1,000 mg tablet mg 01/23/25 metoprolol succinate 50 mg mg PO 01/23/25 tablet,extended release 24 hr omeprazole 20 mg capsule,delayed mg 01/23/25 release sitagliptin phosphate 25 mg tablet mg 01/23/25 (Januvia) sitagliptin phosphate 50 mg tablet mg 01/23/25 (Auguvia) ticagrelor 90 mg tablet (Brilinta) mg 01/23/25 Allergies Allergy/AdvReac Type Severity Reaction Status Date / Time acetaminophen (From Vicodin) Allergy Unknown Verified 01/23/25 13:43 hydrocodone (From Vicodin) Allergy Unknown Verified 01/23/25 13:43 PFSH PFSH Social History Little interest or pleasure in doing things: not at all Feeling down, depressed, or hopeless: not at all Exam Constitutional Vital Signs, click to edit/add: Last Vital Signs Temp 97.9 F 01/23/25 13:39 Pulse 102 H 01/23/25 13:39 Resp 18 01/23/25 13:39 BP 148/85 H 01/23/25 13:39 Pulse Ox 98 01/23/25 13:39 O2 Del Method Room Air 01/23/25 13:39 Course Vital Signs Vital signs: Vital Signs Temperature 97.9 F 01/23/25 13:39 Pulse Rate 102 H 01/23/25 13:39 Respiratory Rate 18 01/23/25 13:39 Blood Pressure 148/85 H 01/23/25 13:39 Pulse Oximetry 98 01/23/25 13:39 Oxygen Delivery Method Room Air 01/23/25 13:39 Temperature 97.9 F 01/23/25 13:39 Pulse Rate 102 H 01/23/25 13:39 Respiratory Rate 18 01/23/25 13:39 Blood Pressure 148/85 H 01/23/25 13:39 Pulse Oximetry 98 01/23/25 13:39 Oxygen Delivery Method Room Air 01/23/25 13:39 Medical Decision Making MDM Narrative Medical decision making narrative: Patient was sent to the ER for a low magnesium level. Lab work was drawn at [facility] earlier today. I cannot find the lab studies, patient believes that they told her the magnesium level was 1.0. We have no phone call from the nephrology office or Dr. Duke. I eventually spoke to Dr. Duke at 1920. We discussed patient's magnesium levels, he was not certain whether patient would go to [place] or [place] [facility] or [facility]. He recommended giving the patient IV magnesium and patient may be discharged and a new prescription for magnesium had been sent to the pharmacy. I asked the patient, she stated that she told the office staff she was going to [facility]. Patient was in the lobby waiting room for a long time. Patient was in room for for a long time before I was able to see her. Multiple blame less apologies were given to the patient, she is understanding. 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 She was understanding. Patient is been drinking water no difficulty. She has no symptoms. She stated that there was a new prescription for magnesium called into the pharmacy already by her experimental welder Dr. Duke. Patient has no chest pain or shortness of breath. Patient has been transition to to observe the patient with nursing staff while she has her IV magnesium transfusion. Patient's discharge has been done by myself. Patient understands to take her night magnesium dose and start her new medication prescription for magnesium tomorrow. Patient was very appreciative of time I spent at bedside, it was nice speaking to her, several apologies were given and she was understanding which is very kind of her. Patient has been on a exhibit artist for 4 hours while she has received IV magnesium replacement. Patient was given oral 800 mg of Mag-Ox as well Critical care time 32 minutes exclusive from separate billable procedures that were performed. The following was considered in the determination of critical care but not limited to the level of medical decision making, intensive cardiac and/or respiratory monitoring, frequent vital sign monitoring, evaluation of laboratory studies, evaluation of radiographic studies, oxygen monitoring, and constant monitoring and speaking to family at bedside Lab Data Labs: Lab Results 01/23/25 Range/Units 17:19 WBC 8.9 (4.0-11.0) 10^3/uL RBC 4.57 (4.20-5.40) 10^6/uL Hgb 13.6 (12.0-16.0) g/dL Hct 40.8 (36.0-48.0) % MCV 89.3 (81.0-99.0) fL MCH 29.8 (26.7-34.0) pg MCHC 33.3 (29.9-35.2) g/dL RDW 14.0 (11.0-15.0) % Plt Count 244 (150-450) 10^3/uL MPV 11.7 (9.5-13.5) fL Neut % (Auto) 65.7 (43.0-75.0) % Lymph % (Auto) 26.3 (20.5-60.0) % [place] % (Auto) 6.1 (1.7-12.0) % Eos % (Auto) 1.2 (0.9-7.0) % Baso % (Auto) 0.5 (0.2-2.0) % Neut # (Auto) 5.8 (1.4-6.5) 10^3/uL Lymph # (Auto) 2.3 (1.2-3.8) 10^3/uL [place] # (Auto) 0.5 (0.3-0.8) 10^3/uL Eos # (Auto) 0.1 (0.0-0.7) 10^3/uL Baso # (Auto) 0.0 (0.0-0.1) 10^3/uL Abs Immat Gran (auto) 0.02 (0.00-0.03) 10^3/uL Imm/Tot Granulo (auto) 0.2 (0.0-0.5) % Sodium 143 (136-145) mmol/L Potassium 4.0 (3.5-5.1) mmol/L Chloride 104 (98-107) mmol/L Carbon Dioxide 29.1 (21.0-32.0) mmol/L Anion Gap 13.9 BUN 15.0 (7.0-18.0) mg/dL Creatinine 0.66 (0.55-1.02) mg/dL Est GFR ( Amer) >60 (>=60 mL/min/1.73m^2) Est GFR (Non-Af Amer) >60 (>=60 mL/min/1.73m^2) BUN/Creatinine Ratio 22.7 Glucose 132 H (74-106) mg/dL Calcium 10.2 H (8.5-10.1) mg/dL Magnesium 0.9 L* (1.8-2.4) mg/dL Total Bilirubin 0.4 (0.2-1.0) mg/dL AST 60 H (15-37) U/L ALT 74 H (14-59) U/L Alkaline Phosphatase 72 (46-116) U/L Total Protein 8.2 (6.4-8.2) g/dL Albumin 3.6 (3.4-5.0) g/dL Globulin 4.6 g/dL Albumin/Globulin Ratio 0.8 Repeat magnesium level is 0.9. ECG Data Attestation: I personally reviewed and interpreted this ECG as follows: (EKG interpretation. Normal sinus rhythm at 89 beats a minute. Normal axis deviation. No acute ST elevation, no acute ectopy. QTc of 394.) Discharge Plan Discharge Chief Complaint: Recheck/Abnormal Lab/Rx Clinical Impression: Hypomagnesemia Patient Disposition: Home, Self-Care Condition: Fair Prescriptions / Home Meds: No Action atorvastatin 80 mg tablet lisinopril-hydrochlorothiazide 20-12.5 mg tablet metoprolol succinate 50 mg tablet extended release 24 hr PO (DME) Accu-Chek Krupa Plus test strp Strip MISCELLANEOUS alendronate 35 mg tablet PO metformin 1,000 mg tablet omeprazole 20 mg capsule,delayed release(DR/EC) Januvia 25 mg tablet Januvia 50 mg tablet ticagrelor [Brilinta] 90 mg tablet Print Language: Estonian Instructions: Hypomagnesemia (ED) Additional Instructions: Start taking your new medication prescription of magnesium. Follow-up with your PCP and Dr. Duke, call tomorrow to make follow-up appointments. You have been given 6 g of magnesium to the IV, along with 800 mg oral magnesium. Take your additional nighttime magnesium tablet at bed, and follow your new prescription tomorrow. Referrals: Johanna Terrell NP [Primary Care Provider] - 1 week
[2025-01-23] MEDS: MAGNESIUM SULFATE IN WATER 4 GM/100 ML PIGGYBACK IV (20:31)
[2025-01-23 22:22] VITALS: BP 138/84; PULSE 93; O2SAT 96
== END 2025-01-23 22:22 | disposition home or self-care (01) ==
PROVIDERS: Emergency Provider Emergency Medicine; PCP Nurse Practitioner Family
DX: E83.42 Hypomagnesemia (principal); Z95.5 Presence of coronary angioplasty implant and graft
CPT/HCPCS: 36415; 80053; 83735; 85025; 93005; 96365; 96366; 99285; J3475